=== PATIENT | male | born 1970 | race Caucasian/White ===

== ENCOUNTER 2017-09-23 18:49 | Emergency (ER) | payer BC, MEDICAID ==
[~2017-09-23] VITALS: Ht 172.7 cm; Wt 91.6 kg
[2017-09-23 18:52] VITALS: BP 133/77
--- NOTE | 2017-09-23 19:02 | NUR ---
REPORT GIVEN TO CONNOR RAMIREZ FOR KEVIN.
[2017-09-23] MEDS ORDERED: FLUORESCEIN SODIUM OPHTH 1 EA STRIP ONE (19:05)
[2017-09-23] MEDS ORDERED: TETRACAINE HCL/PF 0.5% UD 2 ML BOTTLE ONE (19:06)
[2017-09-23] MEDS ORDERED: TETRACAINE HCL/PF 0.5% UD 2 ML BOTTLE RIGHTEYE ONE (19:30)
[2017-09-23] MEDS ORDERED: FLUORESCEIN SODIUM OPHTH 1 EA STRIP OP ONE (19:30)
--- NOTE | 2017-09-23 19:45 | NUR ---
EAR IRRIGATION IN PROGRESS.
== END 2017-09-23 20:05 | disposition home or self-care (01) ==
LOC: ER 18:54
DX: T15.01XA Foreign body in cornea, right eye, initial encounter (principal); H61.23 Impacted cerumen, bilateral; X58.XXXA Exposure to other specified factors, initial encounter; Y93.89 Activity, other specified; Y92.89 Other specified places as the place of occurrence of the external cause; Y99.8 Other external cause status
CPT/HCPCS: A4606; Z7610